=== PATIENT | female | born 2000 | race Two or more races ===

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

== ENCOUNTER 2020-04-23 17:12 | Emergency (ER) | payer MEDICAID ==
[~2020-04-23] VITALS: Ht 152.4 cm; Wt 64.8 kg
[2020-04-23] MEDS ORDERED: SODIUM CHLORIDE 0.9% 1,000 ML IV ONE (20:04)
[2020-04-23 20:27] LABS: BASOPHILS % 0.7 % (0.0-2.0); EOSINOPHILS % 2.2 % (0.0-5.0); HEMATOCRIT. 34.5 % (36.0-48.0); HEMOGLOBIN. 11.6 g/dL (12.0-16.0); LYMPHOCYTES % 46.1 % (20.0-50.0); MEAN CORPUSCULAR VOLUME 83.2 fL (81.0-99.0); MEAN PLATELET VOLUME 7.5 fl (7.4-10.4); MONOCYTES % 10.3 % (2.0-8.0); NEUTROPHILS % 40.7 % (40.0-76.0); PLATELET 253 x1000/uL (130-400); RED BLOOD CELL COUNT 4.14 mill/uL (4.2-5.4); RED CELL DISTRIBUTION WIDTH 14.4 % (11.6-14.6)
[2020-04-23 20:32] LABS: CHLORIDE 105 mEq/L (98-107)
[2020-04-23 20:37] LABS: HCG SCREEN POSITIVE
[2020-04-23 20:56] LABS: B-HCG QUANTITATIVE 23228 mIU/mL (<3)
[2020-04-23 22:35] LABS: CLARITY URINE CLOUDY (CLEAR); COLOR URINE YELLOW (YELLOW); KETONES URINE NEGATIVE (NEGATIVE); LEUKOCYTE ESTERASE URINE 2+ (NEGATIVE); NITRITE URINE NEGATIVE (NEGATIVE); OCCULT BLOOD URINE TRACE (NEGATIVE); PH URINE 6.5 (4.5-8.0); PROTEIN URINE NEGATIVE (NEGATIVE); SPECIFIC GRAVITY URINE 1.019 (1.005-1.030)
[2020-04-23 22:44] LABS: *AMPHETAMINES SCREEN URINE NEGATIVE (NEGATIVE); *BARBITURATES SCREEN URINE NEGATIVE (NEGATIVE); *BENZODIAZEPINES SCREEN URINE NEGATIVE (NEGATIVE); METHADONE URINE SCREEN NEGATIVE (NEGATIVE); OPIATES URINE SCREEN NEGATIVE (NEGATIVE)
[2020-04-23 22:45] LABS: *COCAINE SCREEN URINE NEGATIVE (NEGATIVE); PHENCYCLIDINE URINE SCREEN NEGATIVE (NEGATIVE)
[2020-04-23 22:49] LABS: CANNABINOID URINE SCREEN PRESUMTIVE POSITIVE (NEGATIVE)
[2020-04-23] MEDS ORDERED: CEFAZOLIN 1000MG PREMIX 50 ML IV ONE (23:00)
[2020-04-24 00:21] VITALS: BP 122/68
== END 2020-04-24 00:23 | disposition home or self-care (01) ==
LOC: ER 17:12
DX: O20.0 Threatened abortion (principal); O23.41 Unspecified infection of urinary tract in pregnancy, first trimester; O26.891 Other specified pregnancy related conditions, first trimester; R07.89 Other chest pain; J45.909 Unspecified asthma, uncomplicated; Z3A.01 Less than 8 weeks gestation of pregnancy
CPT/HCPCS: 36415; 71045; 76801; 76817; 80053; 80305; 81003; 81025; 83880; 84484; 84702; 84703; 85025; 86850; 86900; 86901; 87086; 93005; 96365; 99285; J0690; J7030

== ENCOUNTER 2020-10-22 20:38 | Emergency (ER) | payer MEDICAID ==
[~2020-10-22] VITALS: Ht 154.9 cm; Wt 68.0 kg
[2020-10-22] MEDS ORDERED: ACETAMINOPHEN 325MG TABLET PO ONE (21:15)
[2020-10-23 00:42] VITALS: BP 117/61
[2020-10-23] MEDS ORDERED: KETOROLAC 30MG/ML VIAL IM ONE (00:45)
[2020-10-23 01:44] LABS: CLARITY URINE TURBID (CLEAR); COLOR URINE YELLOW (YELLOW); KETONES URINE NEGATIVE (NEGATIVE); LEUKOCYTE ESTERASE URINE 2+ (NEGATIVE); NITRITE URINE NEGATIVE (NEGATIVE); OCCULT BLOOD URINE NEGATIVE (NEGATIVE); PROTEIN URINE NEGATIVE (NEGATIVE)
== END 2020-10-23 02:09 | disposition home or self-care (01) ==
LOC: ER 20:38
DX: N39.0 Urinary tract infection, site not specified (principal)
CPT/HCPCS: 74176; 81003; 96372; 99284; J1885